=== PATIENT | female | born 1965 | race Two or more races ===

== ENCOUNTER → 2022-11-12 | Outpatient (CLI) | payer BC, MEDICARE | LOC: M PAIN 14:45 | PROVIDERS: ATTEND Nurse Practitioner Family | DX: Z53.8 Procedure and treatment not carried out for other reasons (principal) ==

== ENCOUNTER → 2022-11-12 | Outpatient (CLI) | payer BC, MEDICARE | LOC: M PAIN 14:45 | PROVIDERS: ATTEND Nurse Practitioner Family | DX: Z53.8 Procedure and treatment not carried out for other reasons (principal) ==

== ENCOUNTER → 2023-02-17 | Outpatient (CLI) | payer MEDICARE, BC | LOC: M PAIN 16:15 | PROVIDERS: ATTEND Nurse Practitioner Family | DX: Z53.8 Procedure and treatment not carried out for other reasons (principal) ==

== ENCOUNTER → 2023-04-28 | Outpatient (CLI) | payer MEDICARE, BC | LOC: M PAIN 09:30 | PROVIDERS: ATTEND Nurse Practitioner Family | DX: Z53.8 Procedure and treatment not carried out for other reasons (principal) ==